=== PATIENT | female | born 1965 | race Caucasian/White ===

== ENCOUNTER 2020-11-30 12:29 | Outpatient (CLI) | payer BC | END 2020-11-30 12:30 | disposition home or self-care (01) | LOC: CSHMAMMO 12:29 | PROVIDERS: ATTEND Student in an Organized Health Care Education/Training Program | DX: Z12.31 Encounter for screening mammogram for malignant neoplasm of breast (principal); N63.10 Unspecified lump in the right breast, unspecified quadrant; N63.20 Unspecified lump in the left breast, unspecified quadrant | CPT/HCPCS: 77063; 77067 ==

== ENCOUNTER 2020-12-28 08:56 | Outpatient (CLI) | payer BC | END 2020-12-28 08:57 | disposition home or self-care (01) | LOC: CSHULT 08:56 | PROVIDERS: ATTEND Student in an Organized Health Care Education/Training Program | DX: N63.10 Unspecified lump in the right breast, unspecified quadrant (principal); N63.20 Unspecified lump in the left breast, unspecified quadrant; N60.01 Solitary cyst of right breast; N60.02 Solitary cyst of left breast ==

== ENCOUNTER 2022-09-30 10:11 | Outpatient (CLI) | payer BC | END 2022-09-30 10:12 | disposition home or self-care (01) | LOC: CSHMAMMO 10:11 | PROVIDERS: ATTEND Family Medicine | DX: Z12.31 Encounter for screening mammogram for malignant neoplasm of breast (principal) | CPT/HCPCS: 77063; 77067 ==